=== PATIENT | female | born 1990 ===

== ENCOUNTER → 2023-10-01 | Outpatient (CLI) | payer OTHER ==
[2023-10-01 17:05] LABS: FOLLICLE STIMULATING HORMONE 3.6 mIU/ML; LUTEINIZING HORMONE 7.2 mIU/ML; THYROID STIMULATING HORMONE 2.425 uIU/ML (0.55-4.78)
[2023-10-01 17:06] LABS: FREE T4 1.15 NG/DL (0.89-1.76)
== END ==
LOC: M WUC 13:02
PROVIDERS: ATTEND Nurse Practitioner Adult Health
DX: Z79.890 Hormone replacement therapy (principal)

== ENCOUNTER → 2023-10-09 | Outpatient (CLI) | payer OTHER | LOC: M PLARAD 12:18 | PROVIDERS: ATTEND Nurse Practitioner Adult Health | DX: R51.9 Headache, unspecified (principal) ==